=== PATIENT | female | born 1990 | race Caucasian/White ===

== ENCOUNTER 2022-07-03 11:14 | Observation (INO) ==
[2022-07-03] MEDS ORDERED: Iopamidol - 370 500 ML MLS IVP ONE ×2 (11:46→11:47)
[2022-07-03 11:58] LABS: Basophils # 0.1 K/mcL (0.0-0.2); Basophils % 0.8 %; Eosinophils # 0.3 K/mcL (0.0-0.6); Eosinophils % 2.5 %; Hematocrit 40.9 % (35.3-44.9); Hemoglobin 13.9 g/dL (11.5-15.4); Immature Granulocytes % 0.5 % (0-4); Lymphocytes # 2.9 K/mcL (0.6-4.6); Lymphocytes % 28.1 %; Mean Corpuscular Volume 91.3 fL (83.0-100.0); Mean Platelet Volume 11.2 fL (9.4-12.4); Monocytes # 0.6 K/mcL (0.0-1.3); Monocytes % 6.1 %; Neutrophils # 6.4 K/mcL (1.6-8.9); Platelet Count 205 K/mcL (140-400); Red Blood Count 4.48 M/mcL (3.82-4.97); Red Cell Distribution Width 12.1 % (11.5-14.5); White Blood Count 10.3 K/mcL (4.3-11.1)
[2022-07-03 12:14] VITALS: O2SAT 98
[2022-07-03 12:15] LABS: BUN/Creatinine Ratio 15 (6-26); Blood Urea Nitrogen 11 mg/dL (6-20); Calcium 8.7 mg/dL (8.6-10.3); Carbon Dioxide 25 mEq/L (23-29); Chloride 107 mEq/L (98-107); Glucose 112 mg/dL (70-105); Osmolality,Calculated 286 (280-300); Potassium 3.6 mEq/L (3.5-5.1); Sodium 138 mEq/L (136-145)
[2022-07-03 12:17] LABS: Troponin I < 0.03 ng/mL (< 0.04)
[2022-07-03] MEDS ORDERED: Naloxone 0.4 MG/ML INJ IVP PRN (12:58)
[2022-07-03] MEDS ORDERED: Aspirin Enteric Coated 81 MG Tablet PO SCH (13:00)
[2022-07-03 14:54] VITALS: BP 116/79; PULSE 86; TEMP 98.3
[2022-07-03 14:58] LABS: Amphetamine Screen,Urine Negative ng/mL (Cutoff=1000); Barbiturate Screen,Urine Negative ng/mL (Cutoff=200); Benzodiazepines Screen,Urine Negative ng/mL (Cutoff=200); Cannabinoid Screen,Urine Negative ng/mL (Cutoff = 50); Cocaine Screen,Urine Negative ng/mL (Cutoff= 300); Opiate Screen,Urine Negative ng/mL (Cutoff=300); Phencyclidine Screen,Urine Negative ng/mL (Cutoff=25)
[2022-07-03 17:17] LABS: Ethanol < 10 mg/dL (Less than 10)
[2022-07-03 17:18] LABS: Troponin I < 0.03 ng/mL (< 0.04)
[2022-07-04] MEDS ORDERED: *HR* Enoxaparin 40 MG/0.4 ML SYRINGE SQ SCH (06:00)
== END 2022-07-03 18:31 | disposition home or self-care (01) ==
LOC: EMEROOARM 11:14 → 3BNU 11:14
PROVIDERS: ADMIT Internal Medicine; ATTEND Internal Medicine